=== PATIENT | male | born 1980 | race Caucasian/White ===

== ENCOUNTER 2021-10-01 17:13 | Emergency (ER) | payer BC ==
[~2021-10-01] VITALS: Ht 170.2 cm; Wt 77.1 kg
--- NOTE | 2021-10-01 17:15 | NUR ---
SEEN AND EXAMINED BY .
--- NOTE | 2021-10-01 18:40 | NUR ---
Family at bedside Both updated w/plan of care
--- NOTE | 2021-10-01 18:52 | NUR ---
SENT SPINE CT OF PT TO DR. MARINO
[2021-10-01] MEDS ORDERED: IBUPROFEN 600 MG TABLET PO ONE (19:00)
[2021-10-01] MEDS ORDERED: IBUPROFEN 600 MG TABLET ONE (19:03)
[2021-10-01] MEDS ORDERED: CYCL10TA9 PO (19:04)
[2021-10-01] MEDS ORDERED: IBUP-1955 PO (19:04)
[2021-10-01] MEDS ORDERED: TRAMADOL HCL 50 MG TABLET ONE (19:11)
[2021-10-01 19:13] VITALS: BP 121/73
--- NOTE | 2021-10-01 19:13 | NUR ---
Patient discharged to home in stable condition. Written and verbal after care instructions given. Patient verbalizes understanding of instruction.
[2021-10-01] MEDS ORDERED: TRAMADOL HCL 50 MG TABLET PO ONE (19:30)
== END 2021-10-01 19:14 | disposition home or self-care (01) ==
LOC: ER 17:26
DX: S16.1XXA Strain of muscle, fascia and tendon at neck level, initial encounter (principal); S09.90XA Unspecified injury of head, initial encounter; Z60.2 Problems related to living alone; V49.69XA Unspecified car occupant injured in collision with other motor vehicles in traffic accident, initial encounter; Y93.89 Activity, other specified; Y92.413 State road as the place of occurrence of the external cause; Y99.8 Other external cause status
CPT/HCPCS: 70450-TC; 71045-TC; 72125-TC